=== PATIENT | female | born 1975 | race Two or more races ===

== ENCOUNTER 2017-09-29 12:25 | Outpatient (CLI) | payer OTHER | END 2017-09-29 13:00 | disposition home or self-care (01) | LOC: NUCLEAR 12:25 | DX: I83.893 Varicose veins of bilateral lower extremities with other complications (principal) ==

== ENCOUNTER 2021-03-08 07:20 | Outpatient (CLI) | payer OTHER | END 2021-03-08 09:22 | disposition home or self-care (01) | LOC: NUCLEAR 07:20 | DX: I10 Essential (primary) hypertension (principal); E78.00 Pure hypercholesterolemia, unspecified; I50.1 Left ventricular failure, unspecified ==

== ENCOUNTER 2023-05-15 08:57 | Outpatient (CLI) | payer OTHER | END 2023-05-15 10:23 | disposition home or self-care (01) | LOC: MAMO-SONO 08:57 | DX: R92.30 Dense breasts, unspecified (principal); Z12.39 Encounter for other screening for malignant neoplasm of breast ==

== ENCOUNTER 2024-06-03 09:36 | Outpatient (CLI) | payer OTHER | END 2024-06-03 09:41 | disposition home or self-care (01) | LOC: SONOGRAMA 09:36 | PROVIDERS: ATTEND Internal Medicine Gastroenterology | DX: R10.9 Unspecified abdominal pain (principal) ==

== ENCOUNTER 2024-07-07 05:21 | Day surgery (SDC) | payer OTHER ==
[~2024-07-07 05:21] MED LIST: ATACAND32 MG PO; NORVASC5 MG PO
[2024-07-07] MEDS ORDERED: CEFOXITIN SODIUM 2,000 MG VIAL IV ONE (06:17)
[2024-07-07] MEDS ORDERED: LIDOCAINE HCL 1%/EPINEPHRINE 20ML VIAL IJ ONE (08:00)
[2024-07-07] MEDS ORDERED: METRONIDAZOLE/SODIUM CHLORIDE 500 MG/100 ML PIGGYBACK IV ONE (08:00)
[2024-07-07] MEDS ORDERED: BUPIVACAINE HCL/PF 0.25% 30ML VIAL InF ONE (08:00)
[2024-07-07] MEDS ORDERED: PERCOCET 5-3251 EACH PO (08:16)
[2024-07-07] MEDS ORDERED: ZOFRAN8 MG PO (08:16)
[2024-07-07] MEDS ORDERED: PEPCID AC20 MG PO (08:16)
[2024-07-07] MEDS ORDERED: DICY20TA PO (08:17)
[2024-07-07] MEDS ORDERED: MORPHINE SULFATE 4 MG/ML VIAL IV ONE ×2 (08:45→09:15)
== END 2024-07-07 11:00 | disposition home or self-care (01) ==
LOC: CIR.AMB 05:21
PROVIDERS: ATTEND Surgery
DX: K80.10 Calculus of gallbladder with chronic cholecystitis without obstruction (principal); I10 Essential (primary) hypertension; Z88.1 Allergy status to other antibiotic agents; Z91.013 Allergy to seafood